=== PATIENT | female | born 1960 | race African-American/Black ===

== ENCOUNTER 2018-05-13 06:24 | Emergency (ER) | payer OTHER ==
[~2018-05-13] VITALS: Ht 167.6 cm; Wt 117.9 kg
[~2018-05-13 06:24] MED LIST: BENTYL10 MG ORAL; CHLORTHALIDONE25 MG ORAL; FAMOTIDINE40 MG ORAL; KEFLEX500 MG ORAL; LORATADINE10 M1 PO; RANITIDINE HCL150 MG ORAL; RESTORIL30 MG ORAL; SIMVASTATIN10 MG ORAL; TYLENOL325 MG ORAL; ZOFRAN ODT4 MG ORAL
[2018-05-13] MEDS ORDERED: LORazepam Inj 2mg/ml 1ml IV ONE (06:30)
--- NOTE | 2018-05-13 06:57 | Emergency Room Report ---
History of Present Illness General Chief Complaint: Abdominal Pain Source: Patient (Issa Ryder MD) Present Illness HPI Patient started feeling ill at 8:00 last night. She is vomiting. She can't keep anything down at this time. He denies any diarrhea at this time. There is no fever or chills. She now has chest pressure and anxiety. Patient was transported by EMS. No workup was done in the field. Pain is epigastric, constant, burning. Not radiating. Rated 10/10. She as been under stress and feels anxious. Patient denies diabetes. She has a history of hypertension. The patient denies dysuria. No rashes, headache, joint pain. (Issa Ryder MD) Allergies: Coded Allergies: IBUPROFEN (Verified Allergy, Unknown, 05/13/18) Patient History Past Medical History: see triage record Past Surgical History: hysterectomy Social History: Reports: smoking Social History Narrative from home Now: No Reviewed Nursing Documentation: PMH: Agreed; PSxH: Agreed (Issa Ryder MD) Nursing Documentation-PMH Past Medical History: No History, Except For Hx Hypertension: Yes Hx Gastrointestinal Problems: No - hysterectomy 05/01/2018 Hx Neurological Problems: Yes - brain tumor (Issa Ryder MD) Review of Systems All Other Systems: negative except mentioned in HPI (Issa Ryder MD) Physical Exam Vital Signs Date Time Temp Pulse Resp B/P (MAP) Pulse Ox O2 Delivery O2 Flow Rate FiO2 05/13/18 06:29 97.9 90 18 145/93 100 Room Air Sp02 EP Interpretation: reviewed, normal General Appearance: alert, GCS 15, mild distress, other - ambulatory Head: normocephalic Eyes: bilateral eye normal inspection, bilateral eye PERRL ENT: moist mucus membranes Neck: supple Respiratory: lungs clear, normal breath sounds Cardiovascular #1: regular rate, rhythm Cardiovascular #2: 2+ radial (R) Gastrointestinal: normal inspection, normal bowel sounds, no mass, non- distended, no guarding, no rebound, tenderness - Epigastric tenderness Genitourinary: no CVA tenderness Musculoskeletal: back normal, gait/station normal, normal range of motion Neurologic: alert, oriented x3, grossly normal Psychiatric: anxious Skin: normal inspection, warm/dry (Issa Ryder MD) Medical Decision Making Diagnostic Impression: Primary Impression: Abdominal pain Qualified Codes: R10.30 - Lower abdominal pain, unspecified Additional Impressions: Diverticulosis Qualified Codes: K57.30 - Diverticulosis of large intestine without perforation or abscess without bleeding Hemangioma S/P hysterectomy ER Course Patient presents with vomiting and epigastric tenderness. Differential includes gastritis, gastroenteritis, acute myocardial infarction, electrolyte imbalance amongst others. Patient will be evaluated with EKG, chest x-ray, abdominal films and labs. She'll be treated with Zofran, Pepcid IV and Ativan. EKG without injury. CXR and abd films unremarkable. Labs pending. Improved with treatment. Signed out to Dr. Arthur. (Issa Ryder MD) ER Course Hospital Course 57 yo F presents with abd pain, nausea and vomiting Clinical course Patient initially seen and evaluated by Dr. Ryder; please see his note for full history and physical On reassessment patient continues to have pain. Labs unremarkable. Chest x- ray and KUB unremarkable She is status post hysterectomy. CT ordered CT shows diverticulosis, no diverticulitis. There is a unchanged hemangioma to the liver, status post hysterectomy Discussed findings with the patient. Patient is safe for discharge and close outpatient follow-up. I'll provide pain meds and nausea meds. Patient has follow-up appointment with her surgeon this week I feel this is a highly complex case requiring extensive working including EKG/ Rhythm strip, Xray/CT/US, Blood/urine lab work, repeat exams while in ED, and administration of strong opiates/narcotics for pain control, admission to hospital or close patient follow up. Diagnosis - abdominal pain, diverticulosis, hemangioma, s/p hysterectomy Stable and discharged to home with prescription for [place], Zofran, Zantac. Followup with PMD/surgery. Return to ED if symptoms recur or worsen Labs Test 05/13/18 06:40 05/13/18 07:21 White Blood Count 6.5 K/UL (4.8-10.8) Red Blood Count 4.36 M/UL (4.20-5.40) Hemoglobin 13.3 G/DL (12.0-16.0) Hematocrit 40.3 % (37.0-47.0) Mean Corpuscular Volume 92 FL (80-99) Mean Corpuscular Hemoglobin 30.5 PG (27.0-31.0) Mean Corpuscular Hemoglobin Concent 33.0 G/DL (32.0-36.0) Red Cell Distribution Width 12.9 % (11.6-14.8) Platelet Count 217 K/UL (150-450) Mean Platelet Volume 9.1 FL (6.5-10.1) Neutrophils (%) (Auto) 65.3 % (45.0-75.0) Lymphocytes (%) (Auto) 28.5 % (20.0-45.0) Monocytes (%) (Auto) 4.1 % (1.0-10.0) Eosinophils (%) (Auto) 1.2 % (0.0-3.0) Basophils (%) (Auto) 0.9 % (0.0-2.0) Prothrombin Time 10.2 SEC (9.30-11.50) Prothromb Time International Ratio 1.0 (0.9-1.1) Activated Partial Thromboplast Time 27 SEC (23-33) Sodium Level 140 MMOL/L (136-145) Potassium Level 3.7 MMOL/L (3.5-5.1) Chloride Level 102 MMOL/L (98-107) Carbon Dioxide Level 27 MMOL/L (21-32) Anion Gap 11 mmol/L (5-15) Blood Urea Nitrogen 11 mg/dL (7-18) Creatinine 0.8 MG/DL (0.55-1.30) Estimat Glomerular Filtration Rate > 60 mL/min (>60) Glucose Level 123 MG/DL (74-106) Calcium Level 10.5 MG/DL (8.5-10.1) Total Bilirubin 0.5 MG/DL (0.2-1.0) Aspartate Amino Transf (AST/SGOT) 18 U/L (15-37) Alanine Aminotransferase (ALT/SGPT) 21 U/L (12-78) Alkaline Phosphatase 71 U/L (46-116) Troponin I 0.007 ng/mL (0.000-0.056) Total Protein 7.9 G/DL (6.4-8.2) Albumin 3.6 G/DL (3.4-5.0) Globulin 4.3 g/dL Albumin/Globulin Ratio 0.8 (1.0-2.7) Lipase 176 U/L (73-393) Urine Color Pale yellow Urine Appearance Clear Urine pH 8 (4.5-8.0) Urine Specific [place] 1.010 (1.005-1.035) Urine Protein Negative (NEGATIVE) Urine Glucose (UA) Negative (NEGATIVE) Urine Ketones Negative (NEGATIVE) Urine Blood 1+ (NEGATIVE) Urine Nitrite Negative (NEGATIVE) Urine Bilirubin Negative (NEGATIVE) Urine Urobilinogen Normal MG/DL (0.0-1.0) Urine Leukocyte Esterase 2+ (NEGATIVE) Urine RBC 0-2 /HPF (0 - 2) Urine WBC 2-4 /HPF (0 - 2) Urine Squamous Epithelial Cells Occasional /LPF Urine Amorphous Sediment Few /LPF (NONE) Urine Bacteria Occasional /HPF (NONE) (Jacky Arthur MD) EKG Diagnostic Results Rate: normal Rhythm: NSR ST Segments: no acute changes - LAE (Issa Ryder MD) Rhythm Strip Diag. Results EP Interpretation: yes Rhythm: NSR, no PVC's, no ectopy (Issa Ryder MD) Chest X-Ray Diagnostic Results Chest X-Ray Diagnostic Results : Chest X-Ray Ordered: Yes # of Views/Limited/Complete: 1 View Indication: Other EP Interpretation: Yes Interpretation: no consolidation, no effusion, no pneumothorax Impression: No acute disease Electronically Signed by: Electronically signed by Issa Ryder MD (Issa Ryder MD) Other X-Ray Diagnostic Results Other X-Ray Diagnostic Results : X-Ray ordered: abd # of Views/Limited Vs Complete: 2 View Indication: Pain Interpretation: nonspecific bowel gas, no sbo, other - no masses Impression: Other Electronically Signed by: Electronically signed by Issa Ryder MD (Issa Ryder MD) CT/MRI/US Diagnostic Results CT/MRI/US Diagnostic Results : Imaging Test Ordered: CT A/P Impression 1. Sigmoid diverticula without diverticulitis. 2. Stable 14 mm right hepatic lobe hemangioma. 3. 10 mm posterior left renal cyst, unchanged. 4. Status post hysterectomy. (Jacky Arthur MD) Status: improved (Issa Ryder MD) Status: improved (Jacky Arthur MD) Disposition: HOME, SELF-CARE Condition: Stable Scripts Ranitidine Hcl* (ZANTAC*) 150 Mg Tablet 150 MG ORAL TWICE A DAY, #30 TAB Prov: Jacky Arthur MD 05/13/18 Ondansetron Odt* (ZOFRAN ODT*) 4 Mg Tab.rapdis 4 MG BC EVERY 6 HOURS PRN for Nausea & Vomiting, #10 TAB 0 Refills Prov: Jacky Arthur MD 05/13/18 Hydrocodone Bit/Acetaminophen 5-325* (NORCO 5-325*) 1 Each Tablet 1 TAB ORAL Q6H PRN for For Pain, #10 TAB 0 Refills Prov: Jacky Arthur MD 05/13/18 Referrals: [facility],REFERRING (PCP) Issa Ryder MD May 13, 2018 06:57 Jacky Arthur MD May 13, 2018 11:01
[2018-05-13 07:15] VITALS: BP 135/78
[2018-05-13 07:20] LABS: BASOPHILS % (AUTO) 0.9 % (0.0-2.0); EOSINOPHILS % (AUTO) 1.2 % (0.0-3.0); HEMATOCRIT 40.3 % (37.0-47.0); HEMOGLOBIN 13.3 G/DL (12.0-16.0); LYMPHOCYTES % (AUTO) 28.5 % (20.0-45.0); MEAN CORPUSCULAR VOLUME 92 FL (80-99); MONOCYTES % (AUTO) 4.1 % (1.0-10.0); NEUTROPHILS % (AUTO) 65.3 % (45.0-75.0); PLATELET COUNT 217 K/UL (150-450); RED BLOOD COUNT 4.36 M/UL (4.20-5.40); RED CELL DISTRIBUTION WIDTH 12.9 % (11.6-14.8); WHITE BLOOD COUNT 6.5 K/UL (4.8-10.8)
[2018-05-13 07:36] LABS: ANION GAP 11 mmol/L (5-15); BLOOD UREA NITROGEN 11 mg/dL (7-18); CALCIUM 10.5 MG/DL (8.5-10.1); CARBON DIOXIDE 27 MMOL/L (21-32); CHLORIDE 102 MMOL/L (98-107); CREATININE 0.8 MG/DL (0.55-1.30); POTASSIUM 3.7 MMOL/L (3.5-5.1); SODIUM 140 MMOL/L (136-145)
[2018-05-13 07:41] LABS: ALANINE AMINOTRANSFERASE 21 U/L (12-78); ALBUMIN 3.6 G/DL (3.4-5.0); ALBUMIN/GLOBULIN RATIO 0.8 (1.0-2.7); ALKALINE PHOSPHATASE 71 U/L (46-116); ASPARTATE AMINO TRANSFERASE 18 U/L (15-37); BILIRUBIN,TOTAL 0.5 MG/DL (0.2-1.0)
[2018-05-13 07:45] LABS: APPEARANCE,URINE CLEAR; BILIRUBIN, URINE NEGATIVE (NEGATIVE); COLOR,URINE PALE YELLOW; GLUCOSE, URINE (UA) NEGATIVE (NEGATIVE); KETONES,URINE NEGATIVE (NEGATIVE); LEUKOCYTE ESTERASE ,URINE 2+ (NEGATIVE); NITRITE,URINE NEGATIVE (NEGATIVE); PH,URINE 8 (4.5-8.0); PROTEIN,URINE NEGATIVE (NEGATIVE); UROBILINOGEN,URINE NORMAL MG/DL (0.0-1.0)
[2018-05-13] MEDS ORDERED: Isovue-300 100ml vial INJ PRN (08:15)
[2018-05-13] MEDS ORDERED: Morphine Sulfate 4mg/ml Inj (IV/IM USE ONLY) IVP ONE (08:15)
--- NOTE | 2018-05-13 08:38 | Diagnostic Imaging Report ---
ABDOMINAL X-RAY: HISTORY: 57-year-old female with abdominal pain. COMPARISON: Portable CXR same date; abdomen and pelvis CT with intravenous contrast 10/02/2015. FINDINGS: Frontal, presumed supine view of the abdomen and pelvis is limited due to patient large body habitus and technique. Allowing for this, there is at least a small amount of gas within the stomach and large bowel loops especially in the right abdomen. There appears to be average to below-average amount of colonic stool. No dilated bowel loops identified. No obvious ascites or pneumoperitoneum, allowing for technique. No obvious abdominal mass. There is mild apex leftward curvature of the lumbar spine. IMPRESSION: Grossly unremarkable bowel gas pattern; no definite acute abnormality identified to explain unspecified abdominal pain.
--- NOTE | 2018-05-13 08:41 | Diagnostic Imaging Report ---
PORTABLE AP UPRIGHT CXR: HISTORY: 57-year-old female with abdominal pain. COMPARISON: Abdominal x-ray earlier same date;; abdomen and pelvis CT with intravenous contrast 10/02/2015. FINDINGS: There is patchy groundglass and reticular opacities especially in the lung bases bilaterally, possibly secondary to chest wall/breast soft tissues, and/or mild subsegmental atelectasis. Lungs are otherwise grossly clear. Heart size is within normal limits. No abnormal mediastinal widening. No obvious pneumothorax or effusion. IMPRESSION: Possible mild bibasilar lung subsegmental atelectasis; otherwise, unremarkable portable CXR.
[2018-05-13 09:20] VITALS: BP 139/95
--- NOTE | 2018-05-13 10:06 | Diagnostic Imaging Report ---
INDICATION: Abdominal pain TECHNIQUE: Multiple, contiguous axial cuts of the abdomen and pelvis are obtained from the lung bases to the ischial tuberosities. Sagittal and coronal reformatted images are available. One or more of the following dose reduction techniques were used: automated exposure control, adjustment of the mA and/or kV according to patient size, use of iterative reconstruction technique. COMPARISON: CT dated 10/02/15 FINDINGS: The lung bases are clear. Stable 14 mm right hepatic lobe hemangioma. The liver and spleen are normal in size and free of mass lesions. The gallbladder, bile ducts and pancreas are normal. The adrenal gland are unremarkable. 10 mm posterior left renal cyst. The kidneys are normal in size and contour. No stones, lesions or hydronephrosis. Descending and sigmoid colon diverticula without diverticulitis. The appendix is unremarkable, as is the rest of the GI tract. Status post hysterectomy. Aorta is normal caliber. No adenopathy or extraluminal air. Severe disc height loss throughout the lumbar spine. The osseous structures are otherwise normal. IMPRESSION: 1. Sigmoid diverticula without diverticulitis. 2. Stable 14 mm right hepatic lobe hemangioma. 3. 10 mm posterior left renal cyst, unchanged. 4. Status post hysterectomy. CTDI: 19.51 mGy DLP: 1026.35 mGycm
[2018-05-13] MEDS ORDERED: ONDANSETRON ODT4 MG BC (10:15)
[2018-05-13] MEDS ORDERED: RANITIDINE HCL150 MG ORAL (10:15)
[2018-05-13] MEDS ORDERED: NORCO 5-325 TA1 EACH ORAL (10:15)
[2018-05-13 10:22] VITALS: BP 135/95
--- NOTE | 2018-05-13 12:20 | Cardiology Report ---
APPROVED REPORT EKG Measurement Heart [id number] CT [id number] Normal sinus rhythm Possible Left atrial enlargement Borderline ECG
== END 2018-05-13 10:22 | disposition home or self-care (01) ==
LOC: EDUNIT# 06:24 → EDBD 06:24 → EMR 06:46
DX: R10.30 Lower abdominal pain, unspecified (principal); K57.30 Diverticulosis of large intestine without perforation or abscess without bleeding; D18.09 Hemangioma of other sites; Z90.710 Acquired absence of both cervix and uterus; Z88.6 Allergy status to analgesic agent; I10 Essential (primary) hypertension; F17.200 Nicotine dependence, unspecified, uncomplicated; N20.0 Calculus of kidney
CPT/HCPCS: 36415; 71045; 74018; 74177; 80053; 81003; 83690; 84484; 85025; 85610; 85730; 93005; 96361; 96374; 96375; 99284; J2270; J2405; Q9967; S0028

== ENCOUNTER 2019-03-08 17:50 | Emergency (ER) | payer OTHER ==
[~2019-03-08] VITALS: Ht 167.6 cm; Wt 108.9 kg
[~2019-03-08 17:50] MED LIST changes: +NORCO 5-325 TA1 EACH ORAL; +ONDANSETRON ODT4 MG BC
[2019-03-08 18:03] VITALS: BP 142/78
--- NOTE | 2019-03-08 18:06 | NUR ---
ED Nurse Note: pt presents to ED c/o 02/26 abd pain that radiates into her chest as well as N/V since 030 this AM. pt states that she has been vomiting since 0300. first it was food, then it was yellow fluid. pt reports not having an appetite and not being able to keep any fluids down. pt describes the pain as a "burning in her stomach" that spreads to her chest. pt states she has a h/o gastritis and panic attacks
[2019-03-08] MEDS ORDERED: SINGULAIR10 MG ORAL (18:08)
[2019-03-08] MEDS ORDERED: GABAPENTIN800 MG ORAL (18:08)
[2019-03-08] MEDS ORDERED: TRAZODONE HCL100 MG ORAL (18:08)
[2019-03-08] MEDS ORDERED: ALBUTEROL2.5 MG/3 M INH (18:10)
[2019-03-08] MEDS ORDERED: VENTOLIN HFA18 GM INH (18:10)
--- NOTE | 2019-03-08 18:10 | NUR ---
ED Nurse Note: pt is accompanied by her niece Jacqueline who is at bedside with the pt
[2019-03-08] MEDS ORDERED: Morphine Sulfate 4mg/ml Inj (IV USE ONLY) IVP ONE (18:15)
[2019-03-08] MEDS ORDERED: Ipratropium 0.02% Inh Soln 2.5ml UD HHN ONE (18:15)
[2019-03-08] MEDS ORDERED: Albuterol ud Inhalation HHN ONE (18:15)
--- NOTE | 2019-03-08 18:30 | NUR ---
ED Nurse Note: pt vomited about 50 mL of brown fluid. ERMD aware
[2019-03-08 18:37] LABS: BASOPHILS % (AUTO) 0.8 % (0.0-2.0); EOSINOPHILS % (AUTO) 0.1 % (0.0-3.0); HEMATOCRIT 42.6 % (37.0-47.0); HEMOGLOBIN 13.9 G/DL (12.0-16.0); LYMPHOCYTES % (AUTO) 21.8 % (20.0-45.0); MEAN CORPUSCULAR VOLUME 89 FL (80-99); MONOCYTES % (AUTO) 4.1 % (1.0-10.0); NEUTROPHILS % (AUTO) 73.2 % (45.0-75.0); PLATELET COUNT 250 K/UL (150-450); RED BLOOD COUNT 4.79 M/UL (4.20-5.40); RED CELL DISTRIBUTION WIDTH 13.5 % (11.6-14.8); WHITE BLOOD COUNT 8.7 K/UL (4.8-10.8)
[2019-03-08 18:44] LABS: ANION GAP 13 mmol/L (5-15); BLOOD UREA NITROGEN 11 mg/dL (7-18); CALCIUM 10.5 MG/DL (8.5-10.1); CARBON DIOXIDE 24 MMOL/L (21-32); CHLORIDE 102 MMOL/L (98-107); CREATININE 0.7 MG/DL (0.55-1.30); POTASSIUM 3.2 MMOL/L (3.5-5.1); SODIUM 139 MMOL/L (136-145)
--- NOTE | 2019-03-08 18:45 | Emergency Room Report ---
History of Present Illness General Chief Complaint: Chest Pain Source: Patient, Family Member, Medical Record Present Illness HPI Patient presents with complaints of initially chest pain however with further discussion patient has had increased cough and congestion complains of epigastric pain and episodes of vomiting as well they seem to be related with coughing episodes unknown regarding fever denies any diarrhea denies any flank pain upon arrival patient appears uncomfortable Auditory Rales and crackles are noted patient has an episode of bringing up significant phlegm and then also vomiting Allergies: Coded Allergies: IBUPROFEN (Verified Allergy, Unknown, 05/13/18) Uncoded Allergies: HYDROCODONE/ACETAMINOPHEN (Allergy, Unknown, 03/08/19) Patient History Past Medical History: see triage record Now: No Reviewed Nursing Documentation: PMH: Agreed; PSxH: Agreed Nursing Documentation-PMH Past Medical History: No History, Except For Hx Hypertension: Yes Hx Gastrointestinal Problems: No - hysterectomy 05/01/2018 Hx Neurological Problems: Yes - brain tumor Review of Systems All Other Systems: negative except mentioned in HPI Physical Exam Vital Signs Date Time Temp Pulse Resp B/P (MAP) Pulse Ox O2 Delivery O2 Flow Rate FiO2 03/08/19 17:57 97.9 77 20 142/78 (99) 100 Room Air 03/08/19 18:30 21 Sp02 EP Interpretation: reviewed, normal General Appearance: other - Uncomfortable short of breath Head: normocephalic, atraumatic Eyes: bilateral eye PERRL, bilateral eye EOMI ENT: hearing grossly normal, normal pharynx, TMs + canals normal, uvula midline Neck: full range of motion, supple, no meningismus, no bony tend Respiratory: no respiratory distress, no retraction, no accessory muscle use, crackles - bilaterally Cardiovascular #1: normal peripheral pulses, regular rate, rhythm, no edema, no gallop, no JVD, no murmur Gastrointestinal: normal bowel sounds, non tender, soft, no mass, no organomegaly, non-distended, no guarding, no hernia, no pulsatile mass, no rebound Genitourinary: no CVA tenderness Musculoskeletal: normal inspection Neurologic: oriented x3, responsive, duct maker III-XII nml as tested, motor strength/ tone normal, sensory intact Psychiatric: mood/affect normal Skin: no rash Lymphatic: normal inspection, no adenopathy Medical Decision Making Diagnostic Impression: Primary Impression: Abdominal pain Additional Impressions: Chest pain Vomiting ER Course Patient is a fairly complex patient with multiple differential to consideration including but not limited to cardiac cardiopulmonary and vascular emergencies Other differential such as intra-abdominal etiology also entertained patient's blood work are at baseline levels Patient on repeat exam still remains uncomfortable in the epigastric and mid abdominal area CT imaging is done without any signs of acute process Patient has done better however again becomes increasingly nauseated with epigastric and mid abdominal pain and will have inpatient care Labs Test 03/08/19 18:13 03/08/19 18:26 White Blood Count 8.7 K/UL (4.8-10.8) Red Blood Count 4.79 M/UL (4.20-5.40) Hemoglobin 13.9 G/DL (12.0-16.0) Hematocrit 42.6 % (37.0-47.0) Mean Corpuscular Volume 89 FL (80-99) Mean Corpuscular Hemoglobin 29.1 PG (27.0-31.0) Mean Corpuscular Hemoglobin Concent 32.7 G/DL (32.0-36.0) Red Cell Distribution Width 13.5 % (11.6-14.8) Platelet Count 250 K/UL (150-450) Mean Platelet Volume 9.1 FL (6.5-10.1) Neutrophils (%) (Auto) 73.2 % (45.0-75.0) Lymphocytes (%) (Auto) 21.8 % (20.0-45.0) Monocytes (%) (Auto) 4.1 % (1.0-10.0) Eosinophils (%) (Auto) 0.1 % (0.0-3.0) Basophils (%) (Auto) 0.8 % (0.0-2.0) Sodium Level 139 MMOL/L (136-145) Potassium Level 3.2 MMOL/L (3.5-5.1) Chloride Level 102 MMOL/L (98-107) Carbon Dioxide Level 24 MMOL/L (21-32) Anion Gap 13 mmol/L (5-15) Blood Urea Nitrogen 11 mg/dL (7-18) Creatinine 0.7 MG/DL (0.55-1.30) Estimat Glomerular Filtration Rate > 60 mL/min (>60) Glucose Level 114 MG/DL (74-106) Calcium Level 10.5 MG/DL (8.5-10.1) Total Bilirubin 0.7 MG/DL (0.2-1.0) Aspartate Amino Transf (AST/SGOT) 17 U/L (15-37) Alanine Aminotransferase (ALT/SGPT) 20 U/L (12-78) Alkaline Phosphatase 79 U/L (46-116) Total Creatine Kinase 105 U/L (26-308) Creatine Kinase MB 2.0 NG/ML (0.0-3.6) Creatine Kinase MB Relative Index 1.9 Troponin I 0.008 ng/mL (0.000-0.056) Pro-B-Type Natriuretic Peptide 318 pg/mL (0-125) Total Protein 8.5 G/DL (6.4-8.2) Albumin 3.5 G/DL (3.4-5.0) Globulin 5.0 g/dL Albumin/Globulin Ratio 0.7 (1.0-2.7) Lipase 117 U/L (73-393) Lactic Acid Level 1.70 mmol/L (0.4-2.0) Rhythm Strip Diag. Results EP Interpretation: yes Rate: 77 Rhythm: NSR, no PVC's, no ectopy Chest X-Ray Diagnostic Results Chest X-Ray Diagnostic Results : Chest X-Ray Ordered: Yes # of Views/Limited/Complete: 1 View Indication: Chest Pain EP Interpretation: Yes Interpretation: no consolidation, no effusion, no pneumothorax Impression: No acute disease Electronically Signed by: Travon Ta, DO CT/MRI/US Diagnostic Results CT/MRI/US Diagnostic Results : Impression CT abdomen pelvisABDOMEN: Liver: Normal Gallbladder and bile ducts: Normal Pancreas: Normal Spleen: Normal Adrenals: Normal . Kidneys and ureters: Normal Stomach and bowel: Normal Appendix: Normal PELVIS: Bladder: Normal Reproductive: Absent uterus. ABDOMEN and PELVIS: Intraperitoneal space: No free intraperitoneal fluid or free intraperitoneal gas. Bones joints: Osteopenia. Mild levoscoliosis.. No acute fracture. No dislocation. Soft tissues: Normal Vasculature: Normal. Lymph nodes: Normal . IMPRESSION: No acute abdominal or pelvic pathology Last Vital Signs Date Time Temp Pulse Resp B/P (MAP) Pulse Ox O2 Delivery O2 Flow Rate FiO2 03/08/19 18:31 92 18 100 Room Air 21 90 18 99 03/08/19 17:57 97.9 142/78 (99) Status: improved Disposition: XFER SHT-TRM HOSP Condition: Improved Travon Ta DO Mar 08, 2019 18:45
[2019-03-08 18:59] LABS: ALANINE AMINOTRANSFERASE 20 U/L (12-78); ALBUMIN 3.5 G/DL (3.4-5.0); ALBUMIN/GLOBULIN RATIO 0.7 (1.0-2.7); ALKALINE PHOSPHATASE 79 U/L (46-116); ASPARTATE AMINO TRANSFERASE 17 U/L (15-37); BILIRUBIN,TOTAL 0.7 MG/DL (0.2-1.0); CREATINE KINASE 105 U/L (26-308)
[2019-03-08] MEDS ORDERED: Mylanta II UD 30ml ORAL ONE (19:15)
[2019-03-08] MEDS ORDERED: Dicyclomine HCl 10mg/5ml oral soln ORAL ONE (19:15)
[2019-03-08] MEDS ORDERED: HYDROmorphone 1mg/ml Carpuject IVP ONE ×2 (19:45→22:00)
[2019-03-08 20:00] VITALS: BP 135/80
--- NOTE | 2019-03-08 20:00 | NUR ---
ED Nurse Note: pt's ricarda Phillips has gone home pt is resting in bed vital signs are stable, in no acute distress at this time
--- NOTE | 2019-03-08 20:22 | NUR ---
ED Nurse Note: pt has been transported to CT via gurney in no acute distress.
--- NOTE | 2019-03-08 20:35 | NUR ---
ED Nurse Note: pt has returned from CT, she is in stable condition. vital signs are HR: 89, RR: 12, SpO2: 96% on RA, BP: 135/80
--- NOTE | 2019-03-08 21:14 | Diagnostic Imaging Report ---
Indication: Epigastric pain and vomiting Technique: Spiral acquisitions obtained through the abdomen and pelvis. No oral contrast utilized, per emergency room physician request No IV contrast utilized, per referring physician request.. Multiplanar reconstructions were generated. Total dose length product 1233 mGycm. CTDIvol(s) 21 mGy. Dose reduction achieved using automated exposure control Comparison: 05/13/2018 contrast exam. Findings: There is image degradation due to image noise. There is colonic diverticulosis. No evidence of acute diverticulitis. The appendix is normal. No small bowel distention. No free or loculated intraperitoneal gas or fluid is evident. There is a small sliding-type hiatal hernia. The remainder of the stomach and duodenum are unremarkable. Lack of IV contrast limits assessment of the solid organs. The liver demonstrates a subtle area of decreased attenuation in segment 8 which measures 17 mm in diameter. This corresponds to abnormality demonstrated on prior contrast study. The gallbladder, bile ducts, pancreas, spleen, adrenals, kidneys are all unremarkable. Previously demonstrated left renal cysts are not apparent on current noncontrasted exam. The uterus is absent. No pelvic mass or adenopathy. The bladder is unremarkable. The included lung bases demonstrate patchy areas of groundglass opacity. A tiny air cyst is seen in the periphery of the right lower lobe. The bones demonstrate degenerative spondylosis changes. Impression: No acute abnormality Colonic diverticulosis. No evidence of diverticulitis. Subtle 17 mm low-attenuation right lobe liver lesion, reported on prior studies to represent a benign hemangioma Basilar pulmonary parenchymal groundglass opacities, nonspecific, could indicate mild pulmonary edema among other possibilities Incidental findings as noted, including hiatal hernia, prior hysterectomy, right lower lobe air cyst, degenerative spondylosis This essentially agrees with the preliminary interpretation provided overnight by [facility], with some additional nonsignificant findings. The CT scanner at [facility] is accredited by the [employer] and the scans are performed using protocols designed to limit radiation exposure to as low as reasonably achievable to attain images of sufficient resolution adequate for diagnostic evaluation.
--- NOTE | 2019-03-08 21:50 | NUR ---
ED Nurse Note: Called and gave report to CM Roe
--- NOTE | 2019-03-08 21:54 | NUR ---
HAND-OFF: Report given to CM Gonzales. pt is stable and was just given 1 mg of dilauded IV.
[2019-03-08 23:00] VITALS: BP 118/68
[2019-03-08 23:30] VITALS: BP 124/86
--- NOTE | 2019-03-08 23:30 | NUR ---
ED Nurse Note: report given to EMS staff- [facility] and endorsed care, belongings endorsed to ems staff, no neuro changes in pt, pt vss, resp even and unlabored at this time on RA, denies nausea nor vomiting at this time, pt reports pain is better with the pain medication, sinus rhythm on monitor, report given to Jyothi at [place] [facility] by darnell rn.
[2019-03-08 23:40] LABS: APPEARANCE,URINE CLEAR; BILIRUBIN, URINE NEGATIVE (NEGATIVE); GLUCOSE, URINE (UA) NEGATIVE (NEGATIVE); KETONES,URINE 1+ (NEGATIVE); LEUKOCYTE ESTERASE ,URINE NEGATIVE (NEGATIVE); NITRITE,URINE NEGATIVE (NEGATIVE); PH,URINE 6 (4.5-8.0); PROTEIN,URINE 1+ (NEGATIVE); UROBILINOGEN,URINE NORMAL MG/DL (0.0-1.0)
[2019-03-08 23:44] LABS: COLOR,URINE YELLOW
--- NOTE | 2019-03-09 13:00 | Diagnostic Imaging Report ---
Indication: Shortness of breath Technique: One view of the chest Comparison: 05/13/2018 Findings: The lungs and pleural spaces are clear. The heart size is normal. There is no significant interim change Impression: No acute process
== END 2019-03-08 23:30 | disposition short-term general hospital (02) ==
LOC: EMR 18:14
DX: R10.13 Epigastric pain (principal); R07.9 Chest pain, unspecified; R11.10 Vomiting, unspecified; Z90.710 Acquired absence of both cervix and uterus; I10 Essential (primary) hypertension; Z88.6 Allergy status to analgesic agent; Z86.03 Personal history of neoplasm of uncertain behavior
CPT/HCPCS: 36415; 71045; 74176; 80053; 81003; 82550; 82553; 83605; 83690; 83880; 84484; 85025; 87040; 93005; 94640; 94664; 96374; 96375; 96376; J1170; J2270; J2405; S0028; Z7502; 99284